=== PATIENT | female | born 1975 | race American Indian/Alaskan Native ===

== ENCOUNTER 2016-11-11 12:34 | Emergency (ER) | payer SELFPAY ==
[2016-11-11 12:45] VITALS: BP 110/73
[2016-11-11 13:29] LABS: Bacteria,Urine 1+ /HPF (Negative); Bilirubin,Urine NEG (Negative); Blood,Urine NEG (Negative); Ketones,Urine NEG (Negative); Leukocyte Esterase,Urine LG (Negative); Mucus,Urine FEW /HPF; Nitrite,Urine NEG (Negative); Urobilinogen,Urine < 2.0 mg/dL (<2.0)
--- NOTE | 2016-11-11 14:09 | Emergency Department Report ---
ED Back Pain/Injury HPI - General Chief Complaint: Urogenital-Female Stated Complaint: LOW BACK PAIN/VAG DISCHARGE Time Seen by Provider: 11/11/16 13:35 Source: patient Limitations: No Limitations - History of Present Illness Initial Comments: Patient comes into the ER today with complaints of left greater than right intermittent lower back pain for the past week. Patient denies any obvious injury but does state that she works somewhere that she has to stand on her feet and do a lot of bending and twisting from anywhere of 8-10 hours a day. Patient has been taken ibuprofen which does seem to help some. Patient also here with complaints of vaginal irritation for the past 2-3 days. Patient denies any dysuria, vomiting, diarrhea, abdominal pain. MD Complaint: back pain -: week(s) (1) - Related Data Previous Rx's Medication Instructions Recorded Last Taken Type Ciprofloxacin HCl [Ciprofloxacin 500 mg PO Q12HR #14 tab 11/11/16 Unknown Rx TAB] Cyclobenzaprine HCl [Flexeril 5 MG 5 mg PO TID PRN #15 tab 11/11/16 Unknown Rx TAB] Fluconazole [Diflucan TAB] 150 mg PO Q72HR PRN #4 tablet 11/11/16 Unknown Rx Naproxen [Naprosyn TAB] 500 mg PO BID #20 tablet 11/11/16 Unknown Rx traMADol [Ultram 50 MG tab] 50 mg PO Q4HR PRN #30 tablet 11/11/16 Unknown Rx Allergies Allergy/AdvReac Type Severity Reaction Status Date / Time No Known Allergies Allergy Unverified 11/11/16 12:42 ED Review of Systems ROS: Stated complaint: LOW BACK PAIN/VAG DISCHARGE Other details as noted in HPI Constitutional: denies: chills, fever Eyes: denies: eye pain, eye discharge, vision change ENT: denies: ear pain, throat pain Respiratory: denies: cough, shortness of breath, wheezing Cardiovascular: denies: chest pain, palpitations Endocrine: no symptoms reported Gastrointestinal: denies: abdominal pain, nausea, diarrhea Genitourinary: other (vaginal irritation). denies: urgency, dysuria, discharge Musculoskeletal: back pain. denies: joint swelling, arthralgia Skin: denies: rash, lesions Neurological: denies: headache, weakness, paresthesias Psychiatric: denies: anxiety, depression Hematological/Lymphatic: denies: easy bleeding, easy bruising ED Past Medical Hx - Past Medical History Previous Medical History?: No - Surgical History Past Surgical History?: Yes Additional Surgical History: tubal ligation - Social History Smoking Status: Never Smoker Substance Use Type: Alcohol - Medications Home Medications: Home Medications Medication Instructions Recorded Confirmed Last Taken Type Ciprofloxacin HCl [Ciprofloxacin 500 mg PO Q12HR #14 tab 11/11/16 Unknown Rx TAB] Cyclobenzaprine HCl [Flexeril 5 MG 5 mg PO TID PRN #15 tab 11/11/16 Unknown Rx TAB] Fluconazole [Diflucan TAB] 150 mg PO Q72HR PRN #4 tablet 11/11/16 Unknown Rx Naproxen [Naprosyn TAB] 500 mg PO BID #20 tablet 11/11/16 Unknown Rx traMADol [Ultram 50 MG tab] 50 mg PO Q4HR PRN #30 tablet 11/11/16 Unknown Rx ED Physical Exam - General Limitations: No Limitations General appearance: alert, in no apparent distress - Head Head exam: Present: atraumatic, normocephalic - Eye Eye exam: Present: normal appearance - ENT ENT exam: Present: mucous membranes moist - Neck Neck exam: Present: normal inspection, full ROM. Absent: tenderness - Respiratory Respiratory exam: Present: normal lung sounds bilaterally. Absent: respiratory distress, decreased breath sounds - Cardiovascular Cardiovascular Exam: Present: regular rate, normal rhythm. Absent: systolic murmur, diastolic murmur, rubs, gallop - GI/Abdominal GI/Abdominal exam: Present: soft, normal bowel sounds. Absent: distended, tenderness, guarding, rebound, rigid - External exam: Present: erythema, other (external White irritation consistent with candidiasis). Absent: swelling, lesions, ecchymosis, bleeding - Extremities Exam Extremities exam: Present: normal inspection - Back Exam Back exam: Present: normal inspection, full ROM, tenderness (left greater than right lumbosacral tenderness with left paraspinal muscle mass swelling consistent of muscle spasm.), muscle spasm, paraspinal tenderness. Absent: CVA tenderness (R), CVA tenderness (L), vertebral tenderness, rash noted - Neurological Exam Neurological exam: Present: alert, oriented X3, CN II-XII intact - Psychiatric Psychiatric exam: Present: normal affect, normal mood - Skin Skin exam: Present: warm, dry, intact, normal color. Absent: rash ED Course Vital Signs 11/11/16 12:42 Temperature 98.0 F Pulse Rate 68 Respiratory 16 Rate Blood Pressure 110/73 O2 Sat by Pulse 100 Oximetry ED Medical Decision Making - Lab Data Lab Results 11/11/16 Range/Units 12:55 Urine Color Yellow (Yellow) Urine Turbidity Slightly-cloudy (Clear) Urine pH 6.0 (5.0-7.0) Ur Specific [place] 1.025 (1.003-1.030) Urine Protein 30 mg/dl (Negative) mg/dL Urine Glucose (UA) Neg (Negative) mg/dL Urine Ketones Neg (Negative) mg/dL Urine Blood Neg (Negative) Urine Nitrite Neg (Negative) Urine Bilirubin Neg (Negative) Urine Urobilinogen < 2.0 (<2.0) mg/dL Ur Leukocyte Esterase Lg (Negative) Urine WBC (Auto) 20.0 H (0.0-6.0) /HPF Urine RBC (Auto) 33.0 (0.0-6.0) /HPF U Epithel Cells (Auto) 5.0 (0-13.0) /HPF Urine Bacteria (Auto) 1+ (Negative) /HPF Urine Mucus Few /HPF Urine HCG, Qual Negative (Negative) - Medical Decision Making Patient is nontoxic and hemodynamically stable. Patient has reproducible muscle pain noted to lumbosacral region. Patient does not have any bony tenderness noted to spine. There is no history of trauma to area. I see no reasoning for x-ray imaging at this time. Urine results reviewed and discussed with patient room. Patient does have exam and lab findings consistent with urinary tract infection as well as yeast infection. I will start patient on medications properly and refer patient to orthopedic if symptoms fail to resolve or worsen. Patient stable for discharge and is agreement with treatment plan. Critical care attestation.: If time is entered above; I have spent that time in minutes in the direct care of this critically ill patient, excluding procedure time. ED Disposition Clinical Impression: Low back pain, Spasm of lumbar paraspinous muscle, Acute UTI (urinary tract infection), Vaginitis and vulvovaginitis Disposition: DISCHARGED TO HOME OR SELFCARE Is pt being admited?: No Does the pt Need Aspirin: No Condition: Good Instructions: Vulvovaginal Candidiasis (ED), Low Back Strain (ED), Urinary Tract Infection in Women (ED), Muscle Spasm (ED) Prescriptions: Ciprofloxacin HCl [Ciprofloxacin TAB] 500 mg PO Q12HR #14 tab Cyclobenzaprine HCl [Flexeril 5 MG TAB] 5 mg PO TID PRN #15 tab PRN Reason: Muscle Spasm Naproxen [Naprosyn TAB] 500 mg PO BID #20 tablet traMADol [Ultram 50 MG tab] 50 mg PO Q4HR PRN #30 tablet PRN Reason: Pain Fluconazole [Diflucan TAB] 150 mg PO Q72HR PRN #4 tablet PRN Reason: Vaginal Irritation Referrals: PRIMARY CARE, [Primary Care Provider] - 3-5 Days WES VOSS MD [Staff Physician] - 3-5 Days Time of Disposition: 14:34
== END 2016-11-11 14:43 | disposition home or self-care (01) ==
LOC: ED 12:34
DX: N76.0 Acute vaginitis (principal); N39.0 Urinary tract infection, site not specified; M62.830 Muscle spasm of back
CPT/HCPCS: 81001; 81025; 99283

== ENCOUNTER 2016-11-28 03:48 | Emergency (ER) | payer SELFPAY ==
[2016-11-28 04:09] VITALS: BP 131/87
--- NOTE | 2016-11-28 05:07 | Emergency Department Report ---
ED Female HPI - General Chief complaint: Urogenital-Female Stated complaint: VAGINAL DISCHARGE Time Seen by Provider: 11/28/16 04:29 Source: patient Mode of arrival: Ambulatory Limitations: No Limitations - History of Present Illness Initial comments: This is a 40-year-old female well-nourished with nontoxic or ill in appearance but presents with vaginal discharge and irritation. Patient states she was here on 11/11/2016 and was diagnosed with urinary tract infection and vaginitis. Patient has been prescribed ciprofloxacin and Flagyl with no relief. Patient describes vaginal discharge as yellowish in appearance with cottage cheese. Patient denies any dysuria, abdominal pain, pelvic pain, fever , chills, nausea, vomiting, back pain. 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 Patient is concerned about his sexual transmitted disease. Patient stated had unprotected sex month ago and now presents with these symptoms. Patient denies any allergies. No significant medical history. LMP 11/18/2016. MD Complaint: vaginal discharge -: Gradual, days(s) (4) Radiation: non-radiating Severity: mild Improves with: none Worsens with: none Are you Now?: No Last Menstrual Period: 11/18/16 EDC: 08/25/17 Associated Symptoms: vaginal discharge. denies: vaginal bleeding, abdominal pain, nausea/vomiting, fever/chills, headaches, loss of appetite, dysuria, hematuria, rash, seizure, shortness of breath, syncope, weakness - Related Data Sexually active: No (as per pt) Previous Rx's Medication Instructions Recorded Last Taken Type Ciprofloxacin HCl [Ciprofloxacin 500 mg PO Q12HR #14 tab 11/11/16 Unknown Rx TAB] Cyclobenzaprine HCl [Flexeril 5 MG 5 mg PO TID PRN #15 tab 11/11/16 Unknown Rx TAB] Fluconazole [Diflucan TAB] 150 mg PO Q72HR PRN #4 tablet 11/11/16 Unknown Rx Naproxen [Naprosyn TAB] 500 mg PO BID #20 tablet 11/11/16 Unknown Rx traMADol [Ultram 50 MG tab] 50 mg PO Q4HR PRN #30 tablet 11/11/16 Unknown Rx Levofloxacin [Levaquin TAB] 750 mg PO QDAY #7 tablet 11/28/16 Unknown Rx metroNIDAZOLE [Flagyl] 500 mg PO Q12HR 7 Days 11/28/16 Unknown Rx Allergies Allergy/AdvReac Type Severity Reaction Status Date / Time No Known Allergies Allergy Unverified 11/11/16 12:42 ED Review of Systems ROS: Stated complaint: VAGINAL DISCHARGE Other details as noted in HPI Constitutional: denies: chills, fever Eyes: denies: eye pain, eye discharge, vision change ENT: denies: ear pain, throat pain Respiratory: denies: cough, shortness of breath, wheezing Cardiovascular: denies: chest pain, palpitations Endocrine: no symptoms reported Gastrointestinal: denies: abdominal pain, nausea, diarrhea Genitourinary: denies: urgency, dysuria, discharge Musculoskeletal: denies: back pain, joint swelling, arthralgia Skin: denies: rash, lesions Neurological: denies: headache, weakness, paresthesias Psychiatric: denies: anxiety, depression Hematological/Lymphatic: denies: easy bleeding, easy bruising ED Past Medical Hx - Past Medical History Previous Medical History?: No - Surgical History Past Surgical History?: Yes Additional Surgical History: tubal ligation - Social History Smoking Status: Never Smoker - Medications Home Medications: Home Medications Medication Instructions Recorded Confirmed Last Taken Type Ciprofloxacin HCl [Ciprofloxacin 500 mg PO Q12HR #14 tab 11/11/16 Unknown Rx TAB] Cyclobenzaprine HCl [Flexeril 5 MG 5 mg PO TID PRN #15 tab 11/11/16 Unknown Rx TAB] Fluconazole [Diflucan TAB] 150 mg PO Q72HR PRN #4 tablet 11/11/16 Unknown Rx Naproxen [Naprosyn TAB] 500 mg PO BID #20 tablet 11/11/16 Unknown Rx traMADol [Ultram 50 MG tab] 50 mg PO Q4HR PRN #30 tablet 11/11/16 Unknown Rx Levofloxacin [Levaquin TAB] 750 mg PO QDAY #7 tablet 11/28/16 Unknown Rx metroNIDAZOLE [Flagyl] 500 mg PO Q12HR 7 Days 11/28/16 Unknown Rx ED Physical Exam - General Limitations: No Limitations General appearance: alert, in no apparent distress - Head Head exam: Present: atraumatic, normocephalic, normal inspection - Eye Eye exam: Present: normal appearance, PERRL, EOMI. Absent: scleral icterus, conjunctival injection, nystagmus, periorbital swelling, periorbital tenderness Pupils: Present: normal accommodation - ENT ENT exam: Present: normal exam, normal orophraynx, mucous membranes moist, TM's normal bilaterally, normal external ear exam - Neck Neck exam: Present: normal inspection, full ROM. Absent: tenderness, meningismus, lymphadenopathy, thyromegaly - Respiratory Respiratory exam: Present: normal lung sounds bilaterally. Absent: respiratory distress, wheezes, rales, rhonchi, stridor, chest wall tenderness, accessory muscle use, decreased breath sounds, prolonged expiratory - Cardiovascular Cardiovascular Exam: Present: regular rate, normal rhythm, normal heart sounds. Absent: bradycardia, tachycardia, irregular rhythm, systolic murmur, diastolic murmur, rubs, gallop - GI/Abdominal GI/Abdominal exam: Present: soft, normal bowel sounds. Absent: distended, tenderness, guarding, rebound, rigid, diminished bowel sounds - Rectal Rectal exam: Present: deferred - External exam: Present: normal external exam, other (bin piler Gissel Easterwood present). Absent: erythema, swelling, lesions, lacerations, ecchymosis, bleeding Speculum exam: Present: normal speculum exam, other (bin piler Gissel Easterwood present). Absent: erythema, vaginal discharge, cervical discharge, vaginal bleeding, foreign body, tissue, laceration Bi-manual exam: Present: normal bi-manual exam, other (bin piler Gissel Easterwood present). Absent: cervical motion tendernes, adnexal tenderness, adnexal mass, uterine enlargement, uterine tenderness - Extremities Exam Extremities exam: Present: normal inspection, full ROM, normal capillary refill. Absent: tenderness, pedal edema, joint swelling, calf tenderness - Back Exam Back exam: Present: normal inspection, full ROM. Absent: tenderness, CVA tenderness (R), CVA tenderness (L), muscle spasm, paraspinal tenderness, vertebral tenderness, rash noted - Neurological Exam Neurological exam: Present: alert, oriented X3, CN II-XII intact, normal gait - Psychiatric Psychiatric exam: Present: normal affect, normal mood. Absent: depressed, agitated, anxious, flat affect, manic, homicidal ideation, suicidal ideation - Skin Skin exam: Present: warm, dry, intact, normal color. Absent: rash ED Course Vital Signs 11/28/16 04:04 Temperature 98.7 F Pulse Rate 63 Respiratory 18 Rate Blood Pressure 131/87 O2 Sat by Pulse 100 Oximetry ED Medical Decision Making - Medical Decision Making Ed course: This is 40-year-old female that presents with concerns of STD exposure, UTI, bacterial vaginosis 1- after my physical exam, UA, , gonorrhea/Chlamydia and wet prep has been obtained. 2- patient received Rocephin 250 mg IM and azithromycin 1 g due to patient stating she is concerned and would like to be treated empirically 3 instructed patient to follow-up with medical records in 3 to 5 days for results of gonorrhea/chlamydia.- 4- at time time of discharge, the patient does not seem toxic or ill in appearance. No acute signs of distress noted. Patient agrees to discharge treatment plan of care. No further questions noted by the patient. 5. Follow up with her primary care doctor in 3-5 days or if symptoms worsen continue to report back to emergency as soon as possible.- 6- patient received levofloxacin 70 mg for 7 days and was instructed this full course of antibiotics as prescribed. 7- patient also received Flagyl 500mg BID x7 days Critical care attestation.: If time is entered above; I have spent that time in minutes in the direct care of this critically ill patient, excluding procedure time. ED Disposition Clinical Impression: Possible exposure to STD, Bacterial vaginosis UTI (urinary tract infection) Qualifiers: Urinary tract infection type: site unspecified Hematuria presence: without hematuria Qualified Code(s): N39.0 - Urinary tract infection, site not specified Disposition: DC- TO HOME OR SELFCARE Is pt being admited?: No Does the pt Need Aspirin: No Condition: Stable Instructions: Levofloxacin (By mouth), Bacterial Vaginosis (ED), Safe Sex (ED) , Urinary Tract Infection in Women (ED), Metronidazole (By mouth) Additional Instructions: Follow-up with her primary care doctor in 3-5 days or if symptoms worsen return back to emergency room as soon as possible. Follow-up in 3-5 days in the medical records in the hospital to obtain your gonorrhea/chlamydia results. Prescriptions: Levofloxacin [Levaquin TAB] 750 mg PO QDAY #7 tablet metroNIDAZOLE [Flagyl] 500 mg PO Q12HR 7 Days Referrals: PRIMARY CARE, [Primary Care Provider] - 3-5 Days FROILAN PRUITT JR, MD [Staff Physician] - 3-5 Days CINDY QUINONES MD [Staff Physician] - 3-5 Days [facility] [Outside] - 3-5 Days [facility] [Outside] - 3-5 Days [facility] [Provider Group] - 3-5 Days Forms: Work/School Release Form(ED), STI Treatment and Prevention
[2016-11-28] MEDS ORDERED: ROCEPHIN IM ONE (05:28)
[2016-11-28] MEDS ORDERED: ZITHROMAX PO ONE (05:28)
[2016-11-28] MEDS ORDERED: XYLOCAINE 1% MPF 5 mL INFILTRATI ONE (05:28)
[2016-11-28 05:29] LABS: Bacteria,Urine 2+ /HPF (Negative); Bilirubin,Urine NEG (Negative); Blood,Urine NEG (Negative); Ketones,Urine TR mg/dL (Negative); Leukocyte Esterase,Urine LG (Negative); Mucus,Urine 3+ /HPF; Nitrite,Urine NEG (Negative)
== END 2016-11-28 06:00 | disposition home or self-care (01) ==
LOC: ED 03:48
DX: N76.0 Acute vaginitis (principal); B96.89 Other specified bacterial agents as the cause of diseases classified elsewhere; N39.0 Urinary tract infection, site not specified; Z98.51 Tubal ligation status
CPT/HCPCS: 81001; 81025; 87210; 87591; 96372; 99284; J0696

== ENCOUNTER 2017-05-11 08:14 | Emergency (ER) | payer OTHER ==
[2017-05-11 08:24] VITALS: BP 141/79
--- NOTE | 2017-05-11 08:37 | Emergency Department Report ---
ED ENT HPI - General Chief complaint: Dental/Oral Stated complaint: BAD TOOTHACHE Time Seen by Provider: 05/11/17 08:27 Source: patient Mode of arrival: Ambulatory Limitations: No Limitations - History of Present Illness MD complaint: tooth pain -: Gradual Severity: moderate Quality: aching Consistency: constant Improves with: none Worsens with: eating Context- Dental: history of dental caries Associated Symptoms: toothache. denies: fever, cough, gum swelling, pain with swallowing, sore throat, tinnitus, hearing loss, discharge from ear, rhinorrhea - Related Data Previous Rx's Medication Instructions Recorded Last Taken Type Amoxicillin [Trimox CAP] 500 mg PO BID PRN #20 capsule 05/11/17 Unknown Rx Naproxen [Naprosyn] 500 mg PO BID PRN #20 tablet 05/11/17 Unknown Rx Allergies Allergy/AdvReac Type Severity Reaction Status Date / Time No Known Allergies Allergy Verified 05/11/17 08:20 ED Dental HPI - General Chief complaint: Dental/Oral Stated complaint: BAD TOOTHACHE Time Seen by Provider: 05/11/17 08:27 Source: patient Mode of arrival: Ambulatory Limitations: No Limitations - Related Data Previous Rx's Medication Instructions Recorded Last Taken Type Amoxicillin [Trimox CAP] 500 mg PO BID PRN #20 capsule 05/11/17 Unknown Rx Naproxen [Naprosyn] 500 mg PO BID PRN #20 tablet 05/11/17 Unknown Rx Allergies Allergy/AdvReac Type Severity Reaction Status Date / Time No Known Allergies Allergy Verified 05/11/17 08:20 ED Review of Systems ROS: Stated complaint: BAD TOOTHACHE Other details as noted in HPI Comment: All other systems reviewed and negative ENT: dental pain ED Past Medical Hx - Past Medical History Previous Medical History?: No - Surgical History Past Surgical History?: Yes Additional Surgical History: tubal ligation - Social History Smoking Status: Never Smoker Substance Use Type: Alcohol - Medications Home Medications: Home Medications Medication Instructions Recorded Confirmed Last Taken Type Amoxicillin [Trimox CAP] 500 mg PO BID PRN #20 capsule 05/11/17 Unknown Rx Naproxen [Naprosyn] 500 mg PO BID PRN #20 tablet 05/11/17 Unknown Rx ED Physical Exam - General Limitations: No Limitations General appearance: alert - Head Head exam: Present: atraumatic - Eye Eye exam: Present: PERRL - ENT ENT exam: Present: mucous membranes moist - Expanded ENT Exam Expanded Mouth exam: Absent: drooling, trismus, muffled voice, tongue normal, tongue elevation Teeth exam: Present: dental caries (numerous) 1 - Other (current pain) Throat exam: Positive: normal inspection, other (no abscess. no ludwigs). Negative: tonsillar erythema, tonsillomegaly, tonsillar exudate, R peritonsillar mass, L peritonsillar mass - Neck Neck exam: Present: normal inspection - Respiratory Respiratory exam: Present: normal lung sounds bilaterally - Cardiovascular Cardiovascular Exam: Present: regular rate - GI/Abdominal GI/Abdominal exam: Present: soft - Rectal Rectal exam: Present: deferred - Extremities Exam Extremities exam: Present: normal inspection - Back Exam Back exam: Present: normal inspection - Neurological Exam Neurological exam: Present: alert, oriented X3, CN II-XII intact - Psychiatric Psychiatric exam: Present: normal affect, normal mood - Skin Skin exam: Present: warm, dry, intact ED Course Vital Signs 05/11/17 08:20 Temperature 98.5 F Pulse Rate 62 Respiratory 16 Rate Blood Pressure 141/79 O2 Sat by Pulse 100 Oximetry ED Medical Decision Making - Medical Decision Making no abscess - Differential Diagnosis dental disease Critical care attestation.: If time is entered above; I have spent that time in minutes in the direct care of this critically ill patient, excluding procedure time. ED Disposition Clinical Impression: Dental caries Disposition: TO HOME OR SELFCARE Is pt being admited?: No Does the pt Need Aspirin: No Condition: Stable Instructions: Dental Caries (ED) Additional Instructions: meds as instructed today follow up dmd Referrals: [facility] [Outside] - 3-5 Days [facility] [Outside] - 3-5 Days Time of Disposition: 08:34
== END 2017-05-11 08:49 | disposition home or self-care (01) ==
LOC: ED 08:14
DX: K02.9 Dental caries, unspecified (principal)
CPT/HCPCS: 99282